=== PATIENT | female | born 1995 | race African-American/Black ===

== ENCOUNTER 2023-05-11 15:17 | Emergency (ER) | payer SELFPAY ==
[2023-05-11 15:34] VITALS: BP 122/77; PULSE 86; RESP 18; TEMP 98; BMI 27.7
[2023-05-11] MEDS ORDERED: LIDOCAINE 5% TOPICAL PATCH TP ONE (18:43)
[2023-05-11] MEDS ORDERED: LIDOCAINE 4% PATCH TP ONE (18:54)
[2023-05-12] MEDS ORDERED: LIDOCAINE PATCH REMOVAL MC SCH (07:00)
== END 2023-05-11 18:55 | disposition home or self-care (01) ==
LOC: JERFT 15:17 → JER 15:17 → JERFT 18:55
DX: M54.2 Cervicalgia (principal); G44.309 Post-traumatic headache, unspecified, not intractable
CPT/HCPCS: 70450-TC; 72125-TC; 99284-25